=== PATIENT | female | born 1995 | race Caucasian/White ===

== ENCOUNTER 2017-07-02 09:51 | Inpatient (IN) | payer BC, OTHER ==
[~2017-07-02] VITALS: Ht 170.2 cm; Wt 79.4 kg
[2017-07-02 15:04] VITALS: BP 133/79
[2017-07-02 15:37] LABS: BASOPHILS # (AUTO) 0.1 K/uL (0.0-8.0); BASOPHILS % (AUTO) 0.9 % (0.0-2.0); EOSINOPHILS # (AUTO) 1.2 K/uL (0.0-0.7); EOSINOPHILS % (AUTO) 14.6 % (0.0-7.0); HEMATOCRIT 40.8 % (37-47); HEMOGLOBIN 13.2 G/DL (12.0-16.0); LYMPHOCYTES % (AUTO) 35.2 % (20.5-51.5); MEAN CORPUSCULAR HEMOGLOBIN 28.1 UUG (27.0-31.0); MEAN CORPUSCULAR HGB CONC 32 g/dL (32.0-37.0); MEAN CORPUSCULAR VOLUME 86.6 FL (81.0-99.0); MONOCYTES # (AUTO) 0.5 K/UL (0.1-1.30); MONOCYTES % (AUTO) 6.3 % (0.0-11.0); NEUTROPHILS # (AUTO) 3.7 K/UL (1.8-8.9); PLATELET COUNT (AUTO) 489 K/UL (150-450); RED BLOOD CELL COUNT(AUTO) 4.71 MIL/UL (4.2-5.4); WHITE BLOOD COUNT (AUTO) 8.5 K/UL (4.0-11.2)
[2017-07-02 15:39] LABS: ALANINE AMINOTRANSFERASE 40 U/L (14-59); ALKALINE PHOSPHATASE 46 U/L (50-136); ASPARTATE AMINOTRANSFERASE 23 U/L (15-37); BILIRUBIN,TOTAL 0.2 mg/dL (0.2-1.0); CARBON DIOXIDE 26 mmol/L (21-32); CHLORIDE 104 mmol/L (98-107); CREATININE 0.9 mg/dL (0.6-1.3); GLUCOSE 110 mg/dL (74-106); MAGNESIUM 2.2 mg/dL (1.8-2.4); POTASSIUM 3.6 mmol/L (3.5-5.1); TOTAL PROTEIN, SERUM 8.1 g/dL (6.4-8.2); UREA NITROGEN, BLOOD 11 mg/dL (7-18)
[2017-07-02 16:00] LABS: ETHANOL < 3 MG/DL (0-0)
[2017-07-02] MEDS ORDERED: MELA5TAB PO (16:21)
[2017-07-02] MEDS ORDERED: CYAN10009 PO (16:21)
[2017-07-02] MEDS ORDERED: MULT-1119 PO (16:21)
[2017-07-02] MEDS ORDERED: BUDE10.22 INH (16:21)
[2017-07-02] MEDS ORDERED: FLUO40CA49 PO (16:21)
[2017-07-02] MEDS ORDERED: [UNRECOGNIZED DRUG - CODE] PO (16:21)
[2017-07-02] MEDS ORDERED: COAL21.2 TP (16:21)
[2017-07-02 17:30] LABS: *URINE HCG, QUAL NEGATIVE (NEGATIVE)
[2017-07-02 17:50] LABS: *AMPHETAMINE, URINE POSITIVE (NEGATIVE); *BARBITURATE, URINE NEGATIVE (NEGATIVE); *CANNABINOID, URINE POSITIVE (NEGATIVE); *COCCAINE, URINE NEGATIVE (NEGATIVE); *OPIATE, URINE POSITIVE (NEGATIVE); *PHENCYCLIDINE SCREEN,URINE NEGATIVE (NEGATIVE)
[2017-07-02 20:00] VITALS: BP 116/73
[2017-07-03] VITALS: BP 108/76
[2017-07-03 04:00] VITALS: BP 105/72
[2017-07-03 08:00] VITALS: BP 125/84
[2017-07-03 08:08] LABS: HEPATITIS B SURFACE AG Negative (Negative)
[2017-07-03 12:00] VITALS: BP 120/77
[2017-07-03 16:00] VITALS: BP 125/88
[2017-07-03 20:05] VITALS: BP 122/81
[2017-07-04 00:55] VITALS: BP 117/73
[2017-07-04 04:19] VITALS: BP 120/76
[2017-07-04 08:00] VITALS: BP 118/67
[2017-07-04 12:00] VITALS: BP 108/64
[2017-07-04 16:00] VITALS: BP 111/72
[2017-07-04 20:00] VITALS: BP 144/85
[2017-07-05] VITALS: BP 96/53
[2017-07-05 08:55] VITALS: BP 117/73
[2017-07-05 12:55] VITALS: BP 113/74
[2017-07-05 16:55] VITALS: BP 117/70
[2017-07-05 20:00] VITALS: BP 146/98
[2017-07-06 04:00] VITALS: BP 80/44
[2017-07-06 08:00] VITALS: BP 106/66
[2017-07-06 12:00] VITALS: BP 134/95
[2017-07-06 16:00] VITALS: BP 111/72
[2017-07-06 20:00] VITALS: BP 127/80
[2017-07-07] VITALS: BP 99/59
[2017-07-07 04:00] VITALS: BP 104/61
[2017-07-07 08:00] VITALS: BP 117/68
[2017-07-07 12:00] VITALS: BP 128/80
[2017-07-07] MEDS ORDERED: IBUP-1955 PO (13:54)
[2017-07-07] MEDS ORDERED: HYDR-3895 PO (13:54)
[2017-07-07] MEDS ORDERED: GABA-534 PO (13:54)
[2017-07-07] MEDS ORDERED: FAMO20TA8 PO (13:54)
[2017-07-07 16:00] VITALS: BP 127/81
[2017-07-07 20:00] VITALS: BP 140/89
[2017-07-08] VITALS: BP 133/82
[2017-07-08 08:06] VITALS: BP 110/64
== END 2017-07-08 09:22 | disposition home or self-care (01) | DRG 895 ==
LOC: SRC 13:47
PROVIDERS: ADMIT Internal Medicine; ATTEND Internal Medicine
PROC: HZ2ZZZZ Detoxification Services for Substance Abuse Treatment (ICD-10-PCS; principal; 2017-07-02)
PROC: HZ31ZZZ Individual Counseling for Substance Abuse Treatment, Behavioral (ICD-10-PCS; 2017-07-03)
PROC: HZ41ZZZ Group Counseling for Substance Abuse Treatment, Behavioral (ICD-10-PCS; 2017-07-04)
DX: F11.23 Opioid dependence with withdrawal (principal); F33.1 Major depressive disorder, recurrent, moderate; F15.20 Other stimulant dependence, uncomplicated; Z80.3 Family history of malignant neoplasm of breast; Z83.3 Family history of diabetes mellitus; Z90.49 Acquired absence of other specified parts of digestive tract; F41.1 Generalized anxiety disorder; Z79.899 Other long term (current) drug therapy; F13.230 Sedative, hypnotic or anxiolytic dependence with withdrawal, uncomplicated; G47.00 Insomnia, unspecified; F17.210 Nicotine dependence, cigarettes, uncomplicated; F12.90 Cannabis use, unspecified, uncomplicated
CPT/HCPCS: 36415; 70030-TC; 80307; 80324; 80346; 80349; 80361; 83735; 84703; 85025; 86580; 86592; 86705; 86803; 87340; 87806; A4663; G0480; J3411

== ENCOUNTER 2017-09-23 11:12 | Inpatient (IN) | payer BC, OTHER ==
[~2017-09-23] VITALS: Ht 170.2 cm; Wt 68.0 kg
[~2017-09-23 11:12] MED LIST: BUDE10.22 INH; COAL21.2 TP; CYAN10009 PO; FAMO20TA8 PO; FLUO40CA49 PO; GABA-534 PO; HYDR-3895 PO; IBUP-1955 PO; MELA5TAB PO; MULT-1119 PO; [UNRECOGNIZED DRUG - CODE] PO
[2017-09-23] MEDS ORDERED: DICYCLOMINE HCL 20 MG TABLET PO PRN (13:00)
[2017-09-23] MEDS ORDERED: LORAZEPAM 2 MG/1 ML VIAL IM PRN (13:00)
[2017-09-23] MEDS ORDERED: NICOTINE 14 MG/24HR PATCH TD PRN (13:00)
[2017-09-23] MEDS ORDERED: BUPRENORPHINE HCL 2 MG TAB.SUBL SL PRN (13:00)
[2017-09-23] MEDS ORDERED: LORAZEPAM 1 MG TABLET PO PRN ×2 (13:00)
[2017-09-23] MEDS ORDERED: ONDANSETRON ODT 4 MG TAB.RAPDIS SL PRN (13:00)
[2017-09-23] MEDS ORDERED: MIRALAX 17 GM POWD.PACK PO PRN (13:00)
[2017-09-23] MEDS ORDERED: ONDANSETRON 4 MG/2 ML VIAL IM PRN (13:00)
[2017-09-23] MEDS ORDERED: ACETAMINOPHEN 325 MG TABLET PO PRN (13:00)
[2017-09-23] MEDS ORDERED: MAGNESIUM HYDROXIDE 30 ML LIQUID UDC PO PRN (13:00)
[2017-09-23] MEDS ORDERED: ALBUTEROL SULFATE 2.5 MG/ 0.5 ML NEBU NEB PRN (13:00)
[2017-09-23] MEDS ORDERED: NICOTINE POLACRILEX 4 MG GUM-PK OF TEN BC PRN (13:00)
[2017-09-23] MEDS ORDERED: CLONIDINE HCL 0.1 MG TABLET PO PRN (13:00)
[2017-09-23] MEDS ORDERED: METHOCARBAMOL 750 MG TABLET PO PRN (13:00)
[2017-09-23] MEDS ORDERED: MAG HYDROX/AL HYDROX/SIMETH 30 ML LIQUID UDC PO PRN (13:00)
[2017-09-23] MEDS ORDERED: LOPERAMIDE HCL 2 MG CAPSULE PO PRN ×2 (13:00)
[2017-09-23 14:01] LABS: *URINE HCG, QUAL NEGATIVE (NEGATIVE)
[2017-09-23 14:14] LABS: *AMPHETAMINE, URINE NEGATIVE (NEGATIVE); *BARBITURATE, URINE NEGATIVE (NEGATIVE); *CANNABINOID, URINE POSITIVE (NEGATIVE); *COCCAINE, URINE NEGATIVE (NEGATIVE); *OPIATE, URINE POSITIVE (NEGATIVE); *PHENCYCLIDINE SCREEN,URINE NEGATIVE (NEGATIVE)
[2017-09-23 16:00] VITALS: BP 118/74
[2017-09-23 16:01] LABS: BASOPHILS # (AUTO) 0.1 K/uL (0.0-8.0); BASOPHILS % (AUTO) 1.1 % (0.0-2.0); EOSINOPHILS # (AUTO) 0.2 K/uL (0.0-0.7); EOSINOPHILS % (AUTO) 2.1 % (0.0-7.0); HEMATOCRIT 42.3 % (37-47); HEMOGLOBIN 14.2 G/DL (12.0-16.0); LYMPHOCYTES % (AUTO) 26.4 % (20.5-51.5); MEAN CORPUSCULAR HEMOGLOBIN 28.8 UUG (27.0-31.0); MEAN CORPUSCULAR HGB CONC 34 g/dL (32.0-37.0); MEAN CORPUSCULAR VOLUME 86.1 FL (81.0-99.0); MONOCYTES # (AUTO) 0.6 K/UL (0.1-1.30); MONOCYTES % (AUTO) 8.4 % (0.0-11.0); NEUTROPHILS # (AUTO) 4.5 K/UL (1.8-8.9); PLATELET COUNT (AUTO) 467 K/UL (150-450); RED BLOOD CELL COUNT(AUTO) 4.92 MIL/UL (4.2-5.4); WHITE BLOOD COUNT (AUTO) 7.4 K/UL (4.0-11.2)
[2017-09-23 16:06] LABS: ALANINE AMINOTRANSFERASE 55 U/L (14-59); ALKALINE PHOSPHATASE 57 U/L (50-136); ASPARTATE AMINOTRANSFERASE 21 U/L (15-37); BILIRUBIN,TOTAL 0.2 mg/dL (0.2-1.0); CARBON DIOXIDE 29 mmol/L (21-32); CHLORIDE 106 mmol/L (98-107); GLUCOSE 93 mg/dL (74-106); POTASSIUM 3.8 mmol/L (3.5-5.1); TOTAL PROTEIN, SERUM 7.5 g/dL (6.4-8.2); UREA NITROGEN, BLOOD 12 mg/dL (7-18)
[2017-09-23 16:09] LABS: ETHANOL < 3 MG/DL (0-0)
[2017-09-23] MEDS: SYMBICORT INH SCH (17:00)
[2017-09-23] MEDS ORDERED: FLUO40CA49 PO (18:03)
[2017-09-23] MEDS ORDERED: BUDE10.2 INH (18:03)
[2017-09-23] MEDS ORDERED: ALBU18HF2 INH (18:03)
[2017-09-23] MEDS ORDERED: QUET200T PO (18:03)
[2017-09-23 20:00] VITALS: BP 107/66
[2017-09-23] MEDS: IBUPROFEN 600 MG TABLET PO PRN (20:47)
[2017-09-23] MEDS ORDERED: BUPRENORPHINE HCL 2 MG TAB.SUBL SL SCH (21:00)
[2017-09-23] MEDS ORDERED: LORAZEPAM 1 MG TABLET PO ONE (21:00)
[2017-09-24] VITALS: BP 99/52
[2017-09-24 04:00] VITALS: BP 100/56
[2017-09-24 06:06] LABS: HEPATITIS B SURFACE AG Negative (Negative)
[2017-09-24 08:00] VITALS: BP 152/56
[2017-09-24] MEDS ORDERED: TUBERCULIN,PURIF.PROT.DERIV. 5 TU/0.1 ML TEST ID ONE (09:00)
[2017-09-24] MEDS: BUPRENORPHINE HCL 2 MG TAB.SUBL SL SCH ×3 (09:16→20:16)
[2017-09-24] MEDS: FLUOXETINE HCL 20 MG CAPSULE PO SCH (09:17)
[2017-09-24] MEDS: SYMBICORT INH SCH ×2 (09:17→16:37)
[2017-09-24 12:00] VITALS: BP 93/51
[2017-09-24] MEDS: NICOTINE 14 MG/24HR PATCH TD SCH (13:15)
[2017-09-24] MEDS: GABAPENTIN 300 MG CAPSULE PO SCH ×2 (15:07→16:55)
[2017-09-24 16:00] VITALS: BP 106/68
[2017-09-24 20:00] VITALS: BP 139/79
[2017-09-24] MEDS: diphenhydrAMINE 50 MG CAPSULE PO PRN (22:34)
[2017-09-25] VITALS: BP 105/53
[2017-09-25 04:00] VITALS: BP 110/64
[2017-09-25 08:00] VITALS: BP 95/62
[2017-09-25] MEDS: NICOTINE 14 MG/24HR PATCH TD SCH (09:00)
[2017-09-25] MEDS ORDERED: BUPRENORPHINE HCL 2 MG TAB.SUBL SL SCH (09:00)
[2017-09-25] MEDS: FLUOXETINE HCL 20 MG CAPSULE PO SCH (09:15)
[2017-09-25] MEDS: SYMBICORT INH SCH ×2 (09:15→16:44)
[2017-09-25] MEDS: GABAPENTIN 300 MG CAPSULE PO SCH ×3 (09:15→20:25)
[2017-09-25 12:00] VITALS: BP 124/72
[2017-09-25] MEDS: BUPRENORPHINE HCL 2 MG TAB.SUBL SL SCH ×2 (14:40→20:25)
[2017-09-25 16:00] VITALS: BP 122/78
[2017-09-25 20:00] VITALS: BP 131/87
[2017-09-25] MEDS: CLONIDINE HCL 0.1 MG TABLET PO SCH (20:24)
[2017-09-26] VITALS: BP 117/76
[2017-09-26 08:00] VITALS: BP 94/64
[2017-09-26] MEDS: BUPRENORPHINE HCL 2 MG TAB.SUBL SL SCH ×3 (08:59→21:02)
[2017-09-26] MEDS: CLONIDINE HCL 0.1 MG TABLET PO SCH ×2 (08:59→21:01)
[2017-09-26] MEDS: NICOTINE 14 MG/24HR PATCH TD SCH (09:00)
[2017-09-26] MEDS: FLUOXETINE HCL 20 MG CAPSULE PO SCH (09:00)
[2017-09-26] MEDS: GABAPENTIN 300 MG CAPSULE PO SCH ×3 (09:00→21:01)
[2017-09-26] MEDS: SYMBICORT INH SCH ×2 (09:00→16:58)
[2017-09-26 12:00] VITALS: BP 119/70
[2017-09-26 16:00] VITALS: BP 122/75
[2017-09-26 20:00] VITALS: BP 114/71
[2017-09-26] MEDS: IBUPROFEN 600 MG TABLET PO PRN (21:02)
[2017-09-27] VITALS: BP 106/68
[2017-09-27] MEDS: diphenhydrAMINE 50 MG CAPSULE PO PRN (00:59)
[2017-09-27 04:00] VITALS: BP 104/71
[2017-09-27 08:09] VITALS: BP 100/72
[2017-09-27] MEDS: GABAPENTIN 300 MG CAPSULE PO SCH ×3 (08:43→21:00)
[2017-09-27] MEDS: FLUOXETINE HCL 20 MG CAPSULE PO SCH (08:43)
[2017-09-27] MEDS: SYMBICORT INH SCH ×2 (08:43→17:00)
[2017-09-27] MEDS: CLONIDINE HCL 0.1 MG TABLET PO SCH ×2 (08:43→20:59)
[2017-09-27] MEDS: NICOTINE 14 MG/24HR PATCH TD SCH (08:45)
[2017-09-27] MEDS ORDERED: BUPRENORPHINE HCL 2 MG TAB.SUBL SL SCH (09:00)
[2017-09-27 13:00] VITALS: BP 110/68
[2017-09-27 17:40] VITALS: BP 112/71
[2017-09-27] MEDS ORDERED: CLON0.1T14 PO (17:52)
[2017-09-27] MEDS ORDERED: NICO4GUM38 BC (17:52)
[2017-09-27 20:41] VITALS: BP 114/73
[2017-09-28 00:24] VITALS: BP 128/71
[2017-09-28 04:11] VITALS: BP 129/74
[2017-09-28] MEDS: FLUOXETINE HCL 20 MG CAPSULE PO SCH (08:09)
[2017-09-28] MEDS: CLONIDINE HCL 0.1 MG TABLET PO SCH (08:09)
[2017-09-28] MEDS: SYMBICORT INH SCH (08:09)
[2017-09-28] MEDS: GABAPENTIN 300 MG CAPSULE PO SCH (08:09)
[2017-09-28 08:48] VITALS: BP 136/84
== END 2017-09-28 09:39 | disposition home or self-care (01) | DRG 895 ==
LOC: SRC 11:12
PROVIDERS: ADMIT Internal Medicine; ATTEND Internal Medicine
PROC: HZ2ZZZZ Detoxification Services for Substance Abuse Treatment (ICD-10-PCS; principal; 2017-09-23)
PROC: HZ41ZZZ Group Counseling for Substance Abuse Treatment, Behavioral (ICD-10-PCS; 2017-09-25)
DX: F11.23 Opioid dependence with withdrawal (principal); I15.9 Secondary hypertension, unspecified; F12.10 Cannabis abuse, uncomplicated; F13.10 Sedative, hypnotic or anxiolytic abuse, uncomplicated; F15.10 Other stimulant abuse, uncomplicated; J45.40 Moderate persistent asthma, uncomplicated; F32.9 Major depressive disorder, single episode, unspecified; F17.210 Nicotine dependence, cigarettes, uncomplicated; Z90.49 Acquired absence of other specified parts of digestive tract; Z91.89 Other specified personal risk factors, not elsewhere classified; Z81.1 Family history of alcohol abuse and dependence; Z82.0 Family history of epilepsy and other diseases of the nervous system; Z83.3 Family history of diabetes mellitus; Z80.3 Family history of malignant neoplasm of breast; Z79.899 Other long term (current) drug therapy; Z79.51 Long term (current) use of inhaled steroids
CPT/HCPCS: 36415; 70030-TC; 80307; 80346; 80349; 80361; 83735; 84703; 85025; 86592; 86705; 86803; 87340; 87806; G0480; Q0163